=== PATIENT | male | born 1995 | race Caucasian/White ===

== ENCOUNTER 2019-12-22 03:18 | Emergency (ER) | payer SELFPAY ==
[~2019-12-22] VITALS: Ht 180.3 cm; Wt 88.6 kg
[2019-12-22 03:24] VITALS: Ht 180.3 cm; Wt 88.6 kg
[2019-12-22] MEDS ORDERED: KEPPRA250 MG (03:25)
[2019-12-22] MEDS ORDERED: [UNRECOGNIZED DRUG - REMARK] (03:25)
[2019-12-22 04:13] LABS: BILIRUBIN NEGATIVE (NEGATIVE); GLUCOSE NEGATIVE (NEGATIVE); KETONE NEGATIVE (NEGATIVE); NITRITE NEGATIVE (NEGATIVE); UROBILINOGEN NORMAL (NORMAL)
[2019-12-22 04:13] LABS: BASOPHILS 0.5 % (0-2); HEMATOCRIT 48.8 % (42.0-54.0); HEMOGLOBIN 16.2 g/dL (13.5-17.5); IMMATURE GRANULOCYTES 0.3 % (0-5); LYMPHOCYTES 34.3 % (15-50); MCH 29.6 pg (26.0-34.0); MCHC 33.2 g/dL (31.0-37.0); MCV 89.2 fL (80.0-100.0); MEAN PLATELET VOLUME 10.9 fL (7.4-10.4); NEUTROPHILS 56.9 % (40-80); PLATELET COUNT 236 10x3/uL (130-400); RBC 5.47 10x6/uL (4.20-6.10); RDW 12.3 % (11.5-14.5); WBC 10.6 10x3/uL (4.8-10.8)
[2019-12-22 04:20] LABS: UDS - AMPHET NEGATIVE QUAL (NEGATIVE); UDS - BARB NEGATIVE QUAL (NEGATIVE); UDS - BENZO NEGATIVE QUAL (NEGATIVE); UDS - COCAINE NEGATIVE QUAL (NEGATIVE); UDS - OPIATE NEGATIVE QUAL (NEGATIVE); UDS - PCP NEGATIVE QUAL (NEGATIVE); UDS - THC NEGATIVE QUAL (NEGATIVE)
[2019-12-22 04:23] LABS: CALC OSMOLALITY 276 mosm/kg (275-300); CALCIUM 9.4 mg/dL (8.5-10.1); CARBON DIOXIDE 26.5 mmol/L (21.0-32.0); CHLORIDE - SERUM 101 mmol/L (98-107); GLUCOSE 107 mg/dL (74-106); INR 1.11 (0.85-1.17); POTASSIUM - SERUM 3.8 mmol/L (3.5-5.1); PROTIME 14.2 SECONDS (11.6-15.0); SODIUM 138 mmol/L (136-145); UREA NITROGEN 14 mg/dL (7-18); eGFR NON AFRICAN AMERICAN > 90 mL/min (90-120)
[2019-12-22 04:36] LABS: ALBUMIN 4.4 g/dL (3.4-5.0); ALKALINE PHOSPHATASE 66 U/L (30-120); ALT (SGPT) 37 U/L (10-68); BILIRUBIN - TOTAL 1.19 mg/dL (0.2-1.3); PROTEIN - SERUM 7.9 g/dL (6.4-8.2); THYROID STIMULATING HORMONE 3.57 uIU/mL (0.36-3.74)
[2019-12-22 04:40] LABS: C-REACTIVE PROTEIN < 0.2 mg/dL (0.0-0.9)
[2019-12-22] MEDS ORDERED: VENTOLIN HFA [SP8 GM INH (05:37)
[2019-12-22 05:45] VITALS: BP 129/84
== END 2019-12-22 05:45 | disposition home or self-care (01) ==
LOC: D.ER 03:18
PROVIDERS: Family Medicine
DX: R06.00 Dyspnea, unspecified (principal); R05 Cough

== ENCOUNTER 2020-01-11 22:35 | Emergency (ER) | payer OTHER ==
[~2020-01-11] VITALS: Ht 180.3 cm; Wt 70.3 kg
[~2020-01-11 22:35] MED LIST: KEPPRA250 MG; VENTOLIN HFA [SP8 GM INH; [UNRECOGNIZED DRUG - REMARK]
[2020-01-11 22:42] VITALS: Ht 180.3 cm; Wt 70.3 kg
[2020-01-11] MEDS ORDERED: HYDROCODON-ACE1 EAC7 (22:47)
[2020-01-11] MEDS ORDERED: TRAZODONE HCL150 MG PO (22:47)
[2020-01-11] MEDS ORDERED: OMEPRAZOLE20 M1 PO (22:47)
[2020-01-11] MEDS ORDERED: ATIVAN1 MG PO (22:47)
[2020-01-11 23:00] LABS: BASOPHILS 0.4 % (0-2); EOSINOPHILS 1.4 % (0-7); HEMATOCRIT 42.5 % (42.0-54.0); HEMOGLOBIN 14.2 g/dL (13.5-17.5); IMMATURE GRANULOCYTES 0.2 % (0-5); MCH 29.5 pg (26.0-34.0); MCHC 33.4 g/dL (31.0-37.0); MCV 88.4 fL (80.0-100.0); MEAN PLATELET VOLUME 10.2 fL (7.4-10.4); MONOCYTES 7.6 % (2-11); NEUTROPHILS 62.4 % (40-80); PLATELET COUNT 214 10x3/uL (130-400); RBC 4.81 10x6/uL (4.20-6.10); RDW 12.1 % (11.5-14.5); WBC 8.6 10x3/uL (4.8-10.8)
[2020-01-11 23:09] LABS: CALC OSMOLALITY 279 mosm/kg (275-300); CALCIUM 9.5 mg/dL (8.5-10.1); CARBON DIOXIDE 25.5 mmol/L (21.0-32.0); CHLORIDE - SERUM 103 mmol/L (98-107); CREATININE - SERUM 0.9 mg/dL (0.6-1.3); GLUCOSE 98 mg/dL (74-106); SODIUM 141 mmol/L (136-145); UREA NITROGEN 10 mg/dL (7-18); eGFR NON AFRICAN AMERICAN > 90 mL/min (90-120)
[2020-01-11 23:15] LABS: ALBUMIN 4.6 g/dL (3.4-5.0); ALKALINE PHOSPHATASE 54 U/L (30-120); ALT (SGPT) 23 U/L (10-68); BILIRUBIN - TOTAL 1.19 mg/dL (0.2-1.3); PROTEIN - SERUM 7.6 g/dL (6.4-8.2)
[2020-01-12 00:33] VITALS: BP 132/80
== END 2020-01-12 00:33 | disposition home or self-care (01) ==
LOC: D.ER 22:35
PROVIDERS: Family Medicine
DX: K91.841 Postprocedural hemorrhage of a digestive system organ or structure following other procedure (principal); Z98.818 Other dental procedure status; R53.1 Weakness

== ENCOUNTER 2020-01-21 03:00 | Emergency (ER) | payer OTHER ==
[~2020-01-21] VITALS: Ht 180.3 cm; Wt 70.5 kg
[~2020-01-21 03:00] MED LIST changes: +ATIVAN1 MG PO; +HYDROCODON-ACE1 EAC7; +OMEPRAZOLE20 M1 PO; +TRAZODONE HCL150 MG PO
[2020-01-21 03:08] VITALS: Ht 180.3 cm; Wt 70.5 kg
[2020-01-21] MEDS ORDERED: HYDROCODON-ACE1 EAC7 PO (03:43)
[2020-01-21 03:56] VITALS: BP 127/81
== END 2020-01-21 03:56 | disposition home or self-care (01) ==
LOC: D.ER 03:00
DX: K64.5 Perianal venous thrombosis (principal)